=== PATIENT | female | born 1965 | race African-American/Black ===

== ENCOUNTER 2016-07-15 11:08 | Inpatient (IN) | payer OTHER ==
[~2016-07-15] VITALS: Ht 162.6 cm; Wt 90.7 kg
--- NOTE | ~2016-07-15 | EKG ---
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
[~2016-07-15 11:08] MED LIST: AMOXICILLIN 50500 M1 PO; AMOXICILLIN500 M1 PO; ASPIRIN81 M2; BACTRIM DS TAB1 EACH PO; BENADRYL25 MG; FLONASE 0.05%50 MCG NASAL; IBUPROFEN 600600 M1 PO; IRON325 PO; MULTIVITAMINS1 EAC7; NORCO 5-325 TA1 EACH PO; VITAMINS; ZPAK PO
[2016-07-15 11:09] VITALS: BP 157/82
[2016-07-15] MEDS ORDERED: ATIVAN1 MG PO (11:12)
[2016-07-15 11:26] LABS: HEMATOCRIT 41.3 % (37.0-47.0); HEMOGLOBIN 13.4 gm/dL (12.0-15.0); MANUAL DIFF YES; MCHC 32.3 g/dL (28.0-37.0); MCV 74.1 fL (80.0-100.0); PLATELET COUNT 279 thou/uL (150-400); RBC 5.58 mil/uL (4.20-5.00); RDW 15.9 % (10.5-14.5); WBC 5.4 thou/uL (4.0-11.0)
[2016-07-15 11:44] LABS: ANION GAP 8 mmol/L (7-16); BUN 6 mg/dL (7-18); CALCIUM 8.7 mg/dL (8.5-10.1); CHLORIDE 107 mmol/L (98-107); CO2 29 mmol/L (21-32); GLUCOSE 132 mg/dL (74-106); POTASSIUM 3.5 mmol/L (3.5-5.1); SODIUM 144 mmol/L (136-145)
[2016-07-15 11:51] LABS: ALBUMIN 3.7 g/dL (3.4-5.0); ALKALINE PHOSPHATASE 82 U/L (46-116); SALICYLATE < 2.8 mg/dL (2.8-20.0); SGOT 27 U/L (15-37); SGPT 44 U/L (30-65); TOTAL BILIRUBIN 0.2 mg/dL (<0.1-1.0); TOTAL PROTEIN 7.6 g/dL (6.4-8.2); TROPONIN-I 0.09 ng/mL (<0.04-0.07)
[2016-07-15 11:52] LABS: ACETAMINOPHEN < 2 ug/mL (10-30)
[2016-07-15 12:15] LABS: ABSOLUTE NEUTROPHILS 4.2 thou/uL (1.4-8.2); ANISOCYTOSIS 1+; MICROCYTES 1+; TOTAL CELL COUNT 100
[2016-07-15 13:00] LABS: URINE BILIRUBIN NEGATIVE (Negative); URINE BLOOD NEGATIVE (Negative); URINE COLOR YELLOW; URINE GLUCOSE-RANDOM* NEGATIVE (Negative); URINE KETONES NEGATIVE (Negative); URINE NITRITE NEGATIVE (Negative); URINE PROTEIN (DIPSTICK) NEGATIVE (Negative); URINE SPECIFIC GRAVITY 1.025 (1.003-1.035); URINE UROBILINOGEN 0.2 E.U./dl (0.2-1.0)
[2016-07-15 13:09] LABS: AMP/METHAMP Negative (Negative); BARBITURATES Negative (Negative); BENZODIAZEPINES Negative (Negative); COCAINE Negative (Negative); METHADONE Negative (Negative); OPIATES Negative (Negative); PCP Negative (Negative); THC Negative (Negative)
[2016-07-15 15:15] VITALS: BP 145/73
[2016-07-15 19:29] LABS: TSH 1.858 uIU/mL (0.358-3.740)
[2016-07-15 23:29] VITALS: BP 143/88
[2016-07-16 04:42] VITALS: BP 163/83
[2016-07-16 08:05] VITALS: BP 148/82
[2016-07-16 16:05] VITALS: BP 155/94
[2016-07-16 18:43] VITALS: BP 155/94
== END 2016-07-16 19:22 | disposition home or self-care (01) | DRG 880 ==
LOC: ER 11:08 → 5S 14:10 → EROBS 14:10 → 5S 14:57
PROVIDERS: Hospitalist; Physician Assistant
DX: F44.7 Conversion disorder with mixed symptom presentation (principal); F29 Unspecified psychosis not due to a substance or known physiological condition; F32.9 Major depressive disorder, single episode, unspecified; I10 Essential (primary) hypertension; F41.9 Anxiety disorder, unspecified; Z59.0 Homelessness; Z79.899 Other long term (current) drug therapy; Z90.710 Acquired absence of both cervix and uterus
CPT/HCPCS: 10785

== ENCOUNTER 2018-03-20 16:13 | Emergency (ER) | payer OTHER ==
[~2018-03-20] VITALS: Ht 162.6 cm; Wt 89.4 kg
[~2018-03-20 16:13] MED LIST changes: +ATIVAN1 MG PO
[2018-03-20] MEDS ORDERED: IBUPROFEN 800800 M1 PO (17:59)
[2018-03-20] MEDS ORDERED: TESSALON PERLE100 MG PO (17:59)
[2018-03-20 18:00] VITALS: BP 152/81
== END 2018-03-20 18:00 | disposition home or self-care (01) ==
LOC: ER 16:13
DX: J06.9 Acute upper respiratory infection, unspecified (principal); R50.9 Fever, unspecified

== ENCOUNTER 2019-01-04 13:19 | Inpatient (IN) | payer OTHER ==
[~2019-01-04] VITALS: Ht 162.6 cm; Wt 89.4 kg
[~2019-01-04 13:19] MED LIST changes: +IBUPROFEN 800800 M1 PO; +TESSALON PERLE100 MG PO
[2019-01-04 13:26] VITALS: BP 203/111
[2019-01-04] MEDS ORDERED: HYDROCHLOROTHIA25 M2 PO (13:52)
[2019-01-04 14:08] LABS: URINE BILIRUBIN NEGATIVE (Negative); URINE BLOOD NEGATIVE (Negative); URINE CLARITY CLEAR; URINE COLOR YELLOW; URINE GLUCOSE-RANDOM* 3+ (Negative); URINE KETONES NEGATIVE (Negative); URINE LEUKOCYTES NEGATIVE (Negative); URINE NITRITE NEGATIVE (Negative); URINE PROTEIN (DIPSTICK) NEGATIVE (Negative); URINE UROBILINOGEN 0.2 E.U./dl (0.2-1.0)
[2019-01-04 14:18] LABS: ABSOLUTE NEUTROPHILS 5.9 thou/uL (1.4-8.2); BASOPHILS 0.4 % (0.0-2.0); EOSINOPHILS 0.2 % (0.0-3.0); HEMATOCRIT 44.5 % (37.0-47.0); HEMOGLOBIN 14.5 gm/dL (12.0-15.0); LYMPHOCYTES 12.7 % (24.0-44.0); MCH 25.5 pg (26.0-34.0); MCHC 32.7 g/dL (28.0-37.0); MONOCYTES 4.3 % (1.0-8.0); PLATELET COUNT 272 thou/uL (150-400); POLYS 82.4 % (36.0-66.0); RBC 5.71 mil/uL (4.20-5.00); RDW 13.7 % (10.5-14.5); WBC 7.2 thou/uL (4.0-11.0)
[2019-01-04 14:21] LABS: CALCIUM 9.1 mg/dL (8.5-10.1); CREATININE 0.8 mg/dL (0.6-1.0); POTASSIUM 3.9 mmol/L (3.5-5.1)
[2019-01-04 14:27] LABS: ALBUMIN 3.8 g/dL (3.4-5.0); TOTAL BILIRUBIN 0.3 mg/dL (<0.1-1.0); TOTAL PROTEIN 7.8 g/dL (6.4-8.2)
[2019-01-04 16:33] LABS: CHOLESTEROL 216 mg/dL (<200); HDL CHOLESTEROL 42 mg/dL (>40); LDL CHOLESTEROL 159 mg/dL (<100); TC:HDL 5.1 Ratio (Not establshd); TRIGLYCERIDE 79 mg/dL (<150); VLDL 16 mg/dL (<40)
[2019-01-04 17:00] LABS: TSH 1.503 uIU/mL (0.358-3.740)
[2019-01-04 20:01] VITALS: BP 155/84
[2019-01-04 22:09] VITALS: BP 176/92
[2019-01-04 22:20] VITALS: BP 180/103
[2019-01-04 23:00] VITALS: BP 163/91
[2019-01-04 23:06] LABS: GLYCOHEMOGLOBIN (HGB A1C) 11.3 % (4.8-5.6)
[2019-01-05 00:20] VITALS: BP 150/71
--- NOTE | 2019-01-05 03:10 | NUR ---
PT NEW ADMIT ARRIVED ON UNIT ABOUT 2300. ALERT AND ORIENTED. PT ORIENTED TO ROOM AND PAPERS SIGNED. ABDOMINAL PAIN ALLEVIATED. DENIES CHEST PAIN. NAUSEA REPORTED ZOFRAN GIVEN. ELEVATED BP, HYDRALAZINE GIVEN. TYLENOL PRN FOR HEADACHE. NO FEVER. ELEVATED BG, SLIDING SCALE INSULIN GIVEN. PT ON CLEAR LIQUID DIET. DENIES SOB.ASSESSMENTS DOCUMENTED AND PT CURRENTLY STABLE. WILL CONTINUE TO FOLLOW POC
[2019-01-05 03:45] VITALS: BP 166/79
[2019-01-05 03:58] LABS: HEMOGLOBIN 13.8 gm/dL (12.0-15.0); MCH 25.7 pg (26.0-34.0); MCHC 32.9 g/dL (28.0-37.0); RBC 5.38 mil/uL (4.20-5.00); RDW 13.9 % (10.5-14.5); WBC 6.6 thou/uL (4.0-11.0)
[2019-01-05 07:10] VITALS: BP 159/93
--- NOTE | 2019-01-05 08:43 | EKG ---
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 : 1965 Requested By: Constantin Brian Order Number: [id number] MD: Myke Newman Measurements Intervals [place] Rate: 89 P: 62 OH: 185 QRS: -20 QRSD: 84 T: 88 QT: 394 QTc: 480 Interpretive Statements Sinus rhythm Left ventricular hypertrophy Inferior infarct, old Compared to ECG 07/15/2016 11:48:55 Inferior Q waves are more prominent T-wave abnormality no longer present Electronically Signed On 01-05-2019 8:43:10 CDT by Myke Newman [email or web address] <ELECTRONICALLY SIGNED> By: Myke Newman MD, FAC 01/05/19 0843 1452 1452 Myke Newman MD, [facility] /EPI
--- NOTE | 2019-01-05 11:08 | 2DMMODE ---
[facility] [address] [place] [address] 2 D/M-MODE ECHOCARDIOGRAM Name: VIDA CARR Room #: 201-P ADM IN M.R.#: [id number] Admission: 01/04/19 Attend Phys: Say Thomson MD Discharge: Date of : 67 Report #: [id number] THIS REPORT FOR: //name// APPROVED REPORT Study performed: 01/05/2019 10:20:24 EXAM: Comprehensive 2D, Doppler, and color-flow Echocardiogram Patient Location: Bedside Room #: 201 Status: routine BSA: 1.94 HR: 70 bpm BP: 159/93 mmHg Rhythm: NSR Other Information Study Quality: Good Indications Elevated troponin, HTN, HLP, DM. 2D Dimensions RVDd: 33.77 mm IVSd: 12.00 (7-11mm) LVOT Diam: 18.52 (18-24mm) LVDd: 47.31 mm PWd: 12.00 (7-11mm) Ascending Ao: 25.98 (22-36mm) LVDs: 38.29 (25-40mm) Aortic Root: 28.22 mm Volumes Left Atrial Volume (Systole) Single Plane 4CH: 33.67 mL Single Plane 2CH: 45.46 mL LA ESV Index: 22.00 mL/m2 Aortic Valve AoV Peak Rober.: 1.51 m/s AO Peak Gr.: 9.08 mmHg LVOT Max P.44 mmHg LVOT Max V: 1.05 m/s MATTHEW Vmax: 1.88 cm2 Mitral Valve E/A Ratio: 0.9 MV Decel. Time: 189.52 ms MV E Max Rober.: 0.67 m/s [facility] [email or web address] [address] 2 D/M-MODE ECHOCARDIOGRAM Name: VIDA CARR Room #: 201-P [facility].#: [id number] Admission: 01/04/19 Attend Phys: Say Thomson MD Discharge: Date of : 67 Report #: [id number] MV A Rober.: 0.78 m/s MV PHT: 54.96 ms IVRT: 96.89 ms Pulmonary Valve PV Peak Rober.: 0.94 m/s PV Peak Gr.: 3.51 mmHg Pulmonary Vein P Vein S: 0.48 m/s P Vein D: 0.68 m/s P Vein S/D Ratio: 0.71 Tricuspid Valve TR Peak Rober.: 2.68 m/s RAP Estimate: 5.00 mmHg TR Peak Gr.: 29.00 mmHg PA Pressure: 34.00 mmHg Left Ventricle The left ventricle is normal size. There is global hypokinesis of the left ventricle. Mild concentric left ventricular hypertrophy. Left ventricular systolic function is moderately decreased. LVEF is 40-45%. Mild diastolic dysfunction is present (impaired relaxation pattern). Right Ventricle The right ventricle is normal size. The right ventricular systolic function is normal. Atria The left atrium size is normal. The right atrium size is normal. Aortic Valve The aortic valve is normal in structure. Trace aortic regurgitation. There is no aortic valvular stenosis. Mitral Valve The mitral valve is normal in structure. Mild mitral regurgitation. Tricuspid Valve The tricuspid valve is normal in structure. Mild tricuspid regurgitation. Estimated PAP is 35mmHg. Pulmonic Valve The pulmonary valve is normal in structure. Trace pulmonic [facility] [place] [address] 2 D/M-MODE ECHOCARDIOGRAM Name: VIDA CARR Room #: 201-P ADM IN M.R.#: [id number] Admission: 01/04/19 Attend Phys: Say Thomson MD Discharge: Date of : 67 Report #: [id number] regurgitation. Great Vessels The aortic root is normal in size. The ascending aorta is normal in size. IVC is normal in size and collapses >50% with inspiration. Pericardium There is no pericardial effusion. <Conclusion> Left ventricular systolic function is moderately decreased. LVEF is 40-45%. Mild diastolic dysfunction The aortic valve is normal in structure. Trace aortic regurgitation. The mitral valve is normal in structure. Mild mitral regurgitation. Mild tricuspid regurgitation. Estimated pulmonary artery pressure of 35mmHg. There is no pericardial effusion. <ELECTRONICALLY SIGNED> By: Myke Newman MD, FACC 01/05/19 1107 110 06 Myke Newman MD, FAC /INF
[2019-01-05 12:10] VITALS: BP 191/99
--- NOTE | 2019-01-05 13:59 | NUR ---
FAXED FACE SHEET TO [place] AT [facility] TO HELP WITH MEDICAID APPLICATION.
--- NOTE | 2019-01-05 16:01 | NUR ---
Nutrition: RD received consult for DM education. A1C 11.3. Pt out of room for procedure on 2 attempts to visit this afternoon. Will followup 01/08. If pt discharges, rec referral for outpatient DM education.
--- NOTE | 2019-01-05 16:02 | NUR ---
Consult re'd for possible [employer] referral d/t pt pay status. Pt down for stess test this afternoon. Pt's best friend Roger Trujillo ([phone])is in her room awaiting her return. She indicates that they have been BFF's for many years. She reports that the pt works fulltime, drives and has health ins through her employer. [employer] insurance card copied for the front of the chart and faxed to admitting. Joanne states that the pt has a son Harley Sam [phone] and Dtr Angelique Ki [phone] and both live out of state. Will reassess if cm interventions indicated. Pt not available to determine if she wishes to add family or friend to the spokespersons list. Numbers noted should an emergency contacted be needed.
[2019-01-05 16:08] VITALS: BP 156/88
--- NOTE | 2019-01-05 17:37 | NUR ---
PT CARE ASSUMED APPROX 0700. ASSESSMENT CHARTED. DENIES SOA. REPORTS HEADACHE 5/10 WHEN BP ELEVATED. TYLENOL AND PRN BP MEDS RESOLVED HEADACHE. PT COMPLETED DIAGNOSTIC STUDIES THIS SHIFT. CLINICAL UPDATE AND POC UPDATE GIVEN BY THIS NURSE AND DR MCKINNEY. PT DENIES QUESTIONS OR CONCERNS REGARDING POC AN IT'S CHANGES. UP WITH STEADY GAIT. VSS AT THIS TIME. NO DISTRESS NOTED.
[2019-01-05 20:25] VITALS: BP 115/55
--- NOTE | 2019-01-06 03:19 | NUR ---
ASSUMED PT CARE AT 1900.VSS. PT A&OX4. ASSESSMENTS AND MEDS GIVEN DOCUMENTED. PT RESTED WELL FOR MOST OF THE NIGHT, DENIES PAIN N/V, CONSTIPATION OR DISCOMFORT. PT IS STABLE FAMILY IN ROOM, DENISE CONTINUE OT MONITOR.
[2019-01-06 04:00] VITALS: BP 135/76
[2019-01-06 07:25] VITALS: BP 147/76
[2019-01-06] MEDS ORDERED: LIPITOR40 MG PO (08:34)
[2019-01-06] MEDS ORDERED: GLYBURIDE 5 MG T5 M1 PO (08:35)
[2019-01-06] MEDS ORDERED: BENICAR40 MG PO (08:35)
[2019-01-06] MEDS ORDERED: ASPIR 8181 MG PO (08:35)
[2019-01-06] MEDS ORDERED: AUGMENTIN 875-1 EACH PO (08:36)
[2019-01-06] MEDS ORDERED: METFORMIN HCL500 M3 PO (08:36)
[2019-01-06 09:16] VITALS: BP 147/76
--- NOTE | 2019-01-06 09:53 | NUR ---
PT CARE ASSUMED APPROX 0700. ASSESSMENT CHARTED. PT DENIES PAIN AND SOA. VSS. UP WITH STEADY GAIT. PT HAS SPOKEN TO COMMUNITY RESOURCE PERSON REFERRED BY CASE MANAGEMENT AND REPORTS THAT SHE FEELS LIKE SHE HAS ENOUGH EDUCATION AND COMMUNITY RESOURCES TO COMFORTABLY DISCHARGE AND BE HEALTHY POST HOSPITALIZATION. DENIES QUESTIONS OR CONCERNS REGARDING DISCHARGE EDUCATION OR POST HOSPITAL CARE. IV OUT, TELE BOX OFF. HOSPITAL STAFF TO ESCORT PT OUT TIMELY.
--- NOTE | 2019-01-06 11:10 | EKG ---
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 : 1965 Requested By: Myke Newman Order Number: [id number] MD: Myke Newman Measurements Intervals [place] Rate: 77 P: 2 VA: 168 QRS: -24 QRSD: 80 T: 75 QT: 414 QTc: 469 Interpretive Statements Sinus rhythm Left ventricular hypertrophy Inferior infarct, old Anteroseptal infarct, old Compared to ECG 01/04/2019 14:52:45 No significant changes Electronically Signed On 01-06-2019 11:10:16 CDT by Myke Newman [email or web address] <ELECTRONICALLY SIGNED> By: Myke Newman MD, [facility] 01/06/19 1110 0704 0704 Myke Newman MD, [facility] /EPI
== END 2019-01-06 10:03 | disposition home or self-care (01) | DRG 690 ==
LOC: ER 13:19 → 2N 15:51 → EROBS 15:51 → 2N 21:44
PROVIDERS: Emergency Medicine; Hospitalist; ADMIT Hospitalist
DX: N10 Acute pyelonephritis (principal); I10 Essential (primary) hypertension; K52.9 Noninfective gastroenteritis and colitis, unspecified; E11.65 Type 2 diabetes mellitus with hyperglycemia; E78.5 Hyperlipidemia, unspecified; Z98.891 History of uterine scar from previous surgery; Z90.710 Acquired absence of both cervix and uterus; Z79.84 Long term (current) use of oral hypoglycemic drugs
CPT/HCPCS: 10081

== ENCOUNTER 2019-05-27 06:57 | Emergency (ER) | payer OTHER ==
[~2019-05-27] VITALS: Ht 160 cm; Wt 90.7 kg
[~2019-05-27 06:57] MED LIST changes: +ASPIR 8181 MG PO; +AUGMENTIN 875-1 EACH PO; +BENICAR40 MG PO; +GLYBURIDE 5 MG T5 M1 PO; +HYDROCHLOROTHIA25 M2 PO; +LIPITOR40 MG PO; +METFORMIN HCL500 M3 PO
[2019-05-27 07:15] LABS: URINE BILIRUBIN NEGATIVE (Negative); URINE BLOOD TRACE (Negative); URINE CLARITY CLEAR; URINE COLOR YELLOW; URINE GLUCOSE-RANDOM* 2+ (Negative); URINE KETONES TRACE (Negative); URINE LEUKOCYTES-REFLEX TRACE (Negative); URINE NITRITE-REFLEX NEGATIVE (Negative); URINE PROTEIN (DIPSTICK) 2+ (Negative); URINE SPECIFIC GRAVITY 1.025 (1.005-1.035); URINE UROBILINOGEN 0.2 E.U./dl (0.2-1.0)
[2019-05-27 07:28] LABS: HYALINE CASTS 0-3 Few /LPF (None Seen); MUCUS 4-6 Moderate strn/LPF (None Seen); SQUAMOUS >10 Many /LPF (0-3)
[2019-05-27 07:29] LABS: URINE WBC-REFLEX 6-15 Few /HPF (0-5)
[2019-05-27 07:30] LABS: BACTERIA-REFLEX >30 Many /HPF (None Seen); CRYSTALS None Seen /LPF (None Seen); URINE RBC 0-2 Rare /HPF (0-2)
[2019-05-27 07:51] LABS: ABSOLUTE NEUTROPHILS 4.8 thou/uL (1.4-8.2); BASOPHILS 0.4 % (0.0-2.0); EOSINOPHILS 0.8 % (0.0-3.0); HEMATOCRIT 43.3 % (37.0-47.0); HEMOGLOBIN 14.7 gm/dL (12.0-15.0); LYMPHOCYTES 18.3 % (24.0-44.0); MCH 26.1 pg (26.0-34.0); MCHC 33.9 g/dL (28.0-37.0); MONOCYTES 4.8 % (1.0-8.0); PLATELET COUNT 257 thou/uL (150-400); POLYS 75.7 % (36.0-66.0); RBC 5.62 mil/uL (4.20-5.00); RDW 14.4 % (10.5-14.5); WBC 6.3 thou/uL (4.0-11.0)
[2019-05-27 07:55] LABS: CALCIUM 9.2 mg/dL (8.5-10.1); CREATININE 0.9 mg/dL (0.6-1.0); POTASSIUM 3.4 mmol/L (3.5-5.1)
[2019-05-27 08:01] LABS: ALBUMIN 3.7 g/dL (3.4-5.0); TOTAL BILIRUBIN 0.6 mg/dL (<0.1-1.0); TOTAL PROTEIN 7.2 g/dL (6.4-8.2)
[2019-05-27 09:28] LABS: URINE BILIRUBIN NEGATIVE (Negative); URINE BLOOD NEGATIVE (Negative); URINE CLARITY CLEAR; URINE COLOR YELLOW; URINE GLUCOSE-RANDOM* 2+ (Negative); URINE KETONES 1+ (Negative); URINE NITRITE-REFLEX NEGATIVE (Negative); URINE PROTEIN (DIPSTICK) NEGATIVE (Negative); URINE SPECIFIC GRAVITY <= 1.005 (1.005-1.035); URINE UROBILINOGEN 0.2 E.U./dl (0.2-1.0)
[2019-05-27 09:29] LABS: URINE LEUKOCYTES-REFLEX 1+ (Negative)
[2019-05-27 09:41] LABS: CASTS None Seen /LPF (None Seen); SQUAMOUS 4-10 Moderate /LPF (0-3)
[2019-05-27 09:42] LABS: BACTERIA-REFLEX 1-9 Few /HPF (None Seen); CRYSTALS None Seen /LPF (None Seen); URINE RBC None Seen /HPF (0-2); URINE WBC-REFLEX 0-5 Rare /HPF (0-5)
[2019-05-27] MEDS ORDERED: MACROBID 100 M100 M1 PO (10:24)
[2019-05-27 11:14] VITALS: BP 152/75
== END 2019-05-27 11:16 | disposition home or self-care (01) ==
LOC: ER 06:57
PROVIDERS: Emergency Medicine
DX: N30.00 Acute cystitis without hematuria (principal); I10 Essential (primary) hypertension; E11.9 Type 2 diabetes mellitus without complications; Z90.710 Acquired absence of both cervix and uterus; Z79.899 Other long term (current) drug therapy; Z79.82 Long term (current) use of aspirin

== ENCOUNTER 2020-02-08 09:34 | Emergency (ER) | payer OTHER ==
[~2020-02-08] VITALS: Ht 162.6 cm; Wt 84.8 kg
[~2020-02-08 09:34] MED LIST changes: +MACROBID 100 M100 M1 PO
[2020-02-08 09:35] VITALS: BP 173/85
[2020-02-08] MEDS ORDERED: CIPRODEX OTIC7.5 ML OTIC (09:47)
== END 2020-02-08 09:47 | disposition home or self-care (01) ==
LOC: ER 09:34
DX: H60.91 Unspecified otitis externa, right ear (principal); I10 Essential (primary) hypertension; E11.9 Type 2 diabetes mellitus without complications; Z90.710 Acquired absence of both cervix and uterus; Z79.1 Long term (current) use of non-steroidal anti-inflammatories (NSAID); Z79.899 Other long term (current) drug therapy; Z79.82 Long term (current) use of aspirin

== ENCOUNTER 2020-02-12 08:09 | Emergency (ER) | payer OTHER ==
[~2020-02-12] VITALS: Ht 162.6 cm; Wt 84.8 kg
[~2020-02-12 08:09] MED LIST changes: +CIPRODEX OTIC7.5 ML OTIC
[2020-02-12] MEDS ORDERED: TESSALON PERLE100 MG PO (08:45)
[2020-02-12 11:39] LABS: ABSOLUTE NEUTROPHILS 3.9 thou/uL (1.4-8.2); BASOPHILS 0.5 % (0.0-2.0); EOSINOPHILS 0.3 % (0.0-3.0); HEMATOCRIT 42.2 % (37.0-47.0); HEMOGLOBIN 14.1 gm/dL (12.0-15.0); LYMPHOCYTES 9.1 % (24.0-44.0); MCHC 33.4 g/dL (28.0-37.0); MCV 77.9 fL (80.0-100.0); MONOCYTES 4.1 % (1.0-8.0); PLATELET COUNT 189 thou/uL (150-400); RBC 5.42 mil/uL (4.20-5.00); RDW 14.5 % (10.5-14.5); WBC 4.5 thou/uL (4.0-11.0)
[2020-02-12 11:48] LABS: URINE BILIRUBIN NEGATIVE (Negative); URINE BLOOD NEGATIVE (Negative); URINE CLARITY SL CLOUDY; URINE COLOR YELLOW; URINE GLUCOSE-RANDOM* 3+ (Negative); URINE KETONES NEGATIVE (Negative); URINE LEUKOCYTES-REFLEX NEGATIVE (Negative); URINE NITRITE-REFLEX NEGATIVE (Negative); URINE PROTEIN (DIPSTICK) NEGATIVE (Negative); URINE SPECIFIC GRAVITY 1.015 (1.005-1.035); URINE UROBILINOGEN 0.2 E.U./dl (0.2-1.0)
[2020-02-12 11:56] LABS: ANION GAP 13 mmol/L (7-16); BUN 8 mg/dL (7-18); CALCIUM 9.5 mg/dL (8.5-10.1); CHLORIDE 96 mmol/L (98-107); CO2 28 mmol/L (21-32); GLUCOSE 274 mg/dL (74-106); SODIUM 137 mmol/L (136-145)
[2020-02-12 12:00] LABS: ALBUMIN 3.8 g/dL (3.4-5.0); DIRECT BILIRUBIN < 0.1 mg/dL (<0.1-0.2); SGOT 24 U/L (15-37); SGPT 35 U/L (30-65); TOTAL BILIRUBIN 0.3 mg/dL (0.2-1.0); TOTAL PROTEIN 8.3 g/dL (6.4-8.2)
[2020-02-12] MEDS ORDERED: ZITHROMAX250 MG PO (13:21)
[2020-02-12 13:57] VITALS: BP 147/90
== END 2020-02-12 13:59 | disposition home or self-care (01) ==
LOC: ER 08:09
PROVIDERS: Emergency Medicine
DX: U07.1 COVID-19 (principal); Z90.710 Acquired absence of both cervix and uterus; Z79.1 Long term (current) use of non-steroidal anti-inflammatories (NSAID); Z79.899 Other long term (current) drug therapy

== ENCOUNTER 2020-02-24 11:51 | Emergency (ER) | payer OTHER ==
[~2020-02-24] VITALS: Ht 162.6 cm; Wt 89.4 kg
[~2020-02-24 11:51] MED LIST changes: +ZITHROMAX250 MG PO
[2020-02-24 11:56] VITALS: BP 168/90
== END 2020-02-24 12:24 | disposition home or self-care (01) ==
LOC: ER 11:51
DX: U07.1 COVID-19 (principal); Z90.710 Acquired absence of both cervix and uterus; Z79.1 Long term (current) use of non-steroidal anti-inflammatories (NSAID); Z79.2 Long term (current) use of antibiotics; Z79.899 Other long term (current) drug therapy

== ENCOUNTER 2021-02-22 13:25 | Emergency (ER) | payer OTHER ==
[~2021-02-22] VITALS: Ht 162.6 cm; Wt 95.3 kg
[2021-02-22 14:42] LABS: CALCIUM 8.7 mg/dL (8.5-10.1); CREATININE 1.1 mg/dL (0.6-1.0)
[2021-02-22 15:25] VITALS: BP 157/100
--- NOTE | 2021-02-23 14:10 | EKG ---
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 : 1966-01-12 Requested By: Amol Esquivel Order Number: [id number] MD: Bharat Camara Measurements Intervals [place]thel Rate: 107 P: DC: QRS: -6 QRSD: 82 T: 91 QT: 346 QTc: 462 Interpretive Statements NSR LVH with secondary repolarization abnormality Compared to ECG 01/06/2019 07:04:53 Early repolarization now present Myocardial infarct finding no longer present Electronically Signed On 02-23-2021 14:10:28 MACHINE STEMMER by Bharat Cmaara [email or web address] <ELECTRONICALLY SIGNED> By: Bharat Camara MD, [facility] 02/23/21 1410 1400 [facility] Bharat Camara MD FACC /EPI
== END 2021-02-22 15:25 | disposition home or self-care (01) ==
LOC: ER 13:25 → EDBD 13:25 → ER 15:25
PROVIDERS: Nurse Practitioner
DX: E11.40 Type 2 diabetes mellitus with diabetic neuropathy, unspecified (principal); Z90.710 Acquired absence of both cervix and uterus; Z98.890 Other specified postprocedural states; Z79.84 Long term (current) use of oral hypoglycemic drugs; Z79.899 Other long term (current) drug therapy; Z79.1 Long term (current) use of non-steroidal anti-inflammatories (NSAID)

== ENCOUNTER 2021-02-26 15:08 | Emergency (ER) | payer OTHER ==
[~2021-02-26] VITALS: Ht 162.6 cm; Wt 90.7 kg
[2021-02-26 15:16] VITALS: BP 160/73
== END 2021-02-26 16:00 | disposition home or self-care (01) ==
LOC: ER 15:08
DX: R04.0 Epistaxis (principal); Z79.899 Other long term (current) drug therapy; Z90.710 Acquired absence of both cervix and uterus; Z98.890 Other specified postprocedural states

== ENCOUNTER 2021-04-06 06:51 | Emergency (ER) | payer OTHER ==
[~2021-04-06] VITALS: Ht 162.6 cm; Wt 96.6 kg
[2021-04-06] MEDS ORDERED: LANTUS SUBQ (07:18)
[2021-04-06 07:24] LABS: ABSOLUTE NEUTROPHILS 8.1 thou/uL (1.4-8.2); BASOPHILS 0.4 % (0.0-2.0); EOSINOPHILS 0.2 % (0.0-3.0); HEMATOCRIT 41.5 % (37.0-47.0); HEMOGLOBIN 13.7 gm/dL (12.0-15.0); LYMPHOCYTES 11.1 % (24.0-44.0); MCH 24.8 pg (26.0-34.0); MCHC 32.9 g/dL (28.0-37.0); MCV 75.2 fL (80.0-100.0); MONOCYTES 4.8 % (1.0-8.0); PLATELET COUNT 267 thou/uL (150-400); POLYS 83.5 % (36.0-66.0); RBC 5.52 mil/uL (4.20-5.00); RDW 13.9 % (10.5-14.5); WBC 9.7 thou/uL (4.0-11.0)
[2021-04-06 07:38] LABS: CALCIUM 8.9 mg/dL (8.5-10.1); CREATININE 0.8 mg/dL (0.6-1.0); POTASSIUM 3.9 mmol/L (3.5-5.1)
[2021-04-06] MEDS ORDERED: AZITHROMYCIN500 MG PO ×2 (09:34→09:55)
[2021-04-06] MEDS ORDERED: DOXYCYCLINE 10100 MG PO ×2 (09:34→09:55)
[2021-04-06 09:59] VITALS: BP 142/80
--- NOTE | 2021-04-07 10:02 | EKG ---
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 : 1965 Requested By: Lyndon Ga Order Number: [id number] MD: Myke Newman Measurements Intervals [place] Rate: 93 P: 65 ND: 183 QRS: -35 QRSD: 102 T: 92 QT: 399 QTc: 497 Interpretive Statements Sinus rhythm Left ventricular hypertrophy Left anterior hemiblock Borderline prolonged QT interval Baseline wander in lead(s) V2 Compared to ECG 02/22/2021 14:00:38 No significant change was found Electronically Signed On 04-07-2021 7:44:15 EVENT MARKETING MANAGER by Myke Newman [email or web address] <ELECTRONICALLY SIGNED> By: Myke Newman MD, [facility] 04/07/21 0744 8 8 Myke Newman MD, [facility] /EPI
== END 2021-04-06 10:00 | disposition home or self-care (01) ==
LOC: ER 06:51
PROVIDERS: Student in an Organized Health Care Education/Training Program
DX: U07.1 COVID-19 (principal); R05.9 Cough, unspecified; J18.9 Pneumonia, unspecified organism; Z90.710 Acquired absence of both cervix and uterus; Z98.890 Other specified postprocedural states; Z79.891 Long term (current) use of opiate analgesic; Z79.899 Other long term (current) drug therapy; Z79.4 Long term (current) use of insulin